=== PATIENT | male | born 1970 | race African-American/Black ===

== ENCOUNTER 2016-10-03 14:28 | Emergency (ER) | payer MEDICAID ==
[~2016-10-03] VITALS: Ht 175.3 cm; Wt 128.8 kg
[~2016-10-03 14:28] MED LIST: AMOX500T3 PO; IBUP800T24 PO; NORPTMEDS CO
[2016-10-03] MEDS ORDERED: ONDANSETRON HCL 4 MG/2 ML VIAL IM ONE (16:15)
[2016-10-03] MEDS ORDERED: HYDROmorphone HCL 2 MG/ML VL IM ONE (16:15)
[2016-10-03 16:31] VITALS: BP 127/67
[2016-10-03] MEDS ORDERED: ETHYL CHLORIDE SPRAY TOP ONE (16:45)
== END 2016-10-03 18:15 | disposition home or self-care (01) ==
LOC: ER 14:31
DX: N49.2 Inflammatory disorders of scrotum (principal)
CPT/HCPCS: 10060; 96372; 99284; J1170; J2405

== ENCOUNTER 2017-02-05 00:02 | Emergency (ER) | payer MEDICAID ==
[2017-02-05] MEDS ORDERED: HYDROcodone-ACET 10/325MG TAB ONE (01:19)
== END 2017-02-05 05:00 | disposition left against medical advice (07) ==
LOC: ER 00:02
DX: K08.89 Other specified disorders of teeth and supporting structures (principal); Z53.21 Procedure and treatment not carried out due to patient leaving prior to being seen by health care provider

== ENCOUNTER 2017-07-26 19:21 | Emergency (ER) | payer MEDICAID ==
[~2017-07-26] VITALS: Ht 182.9 cm; Wt 127.0 kg
[2017-07-26 19:36] VITALS: BP 162/120
== END 2017-07-27 00:23 | disposition left against medical advice (07) ==
LOC: EDBD 19:21 → ER 19:21
DX: F10.10 Alcohol abuse, uncomplicated (principal); Z53.21 Procedure and treatment not carried out due to patient leaving prior to being seen by health care provider

== ENCOUNTER 2017-08-07 23:50 | Emergency (ER) | payer MEDICAID ==
[~2017-08-07] VITALS: Ht 185.4 cm; Wt 117.9 kg
[2017-08-08 00:16] VITALS: BP 126/89
[2017-08-08] MEDS ORDERED: KETOROLAC TROMETH 60MG/2ML VIAL IM ONE (01:45)
[2017-08-08] MEDS ORDERED: CYCLOBENZAPRINE HCL 10 MG TAB PO ONE (01:45)
[2017-08-08] MEDS ORDERED: HYDROcodone-ACET 10/325MG TAB PO ONE (02:00)
== END 2017-08-08 02:53 | disposition home or self-care (01) ==
LOC: ER 23:50
DX: M48.02 Spinal stenosis, cervical region (principal); V49.3XXA Car occupant (driver) (passenger) injured in unspecified nontraffic accident, initial encounter; Y93.89 Activity, other specified; Y92.89 Other specified places as the place of occurrence of the external cause; Y99.8 Other external cause status
CPT/HCPCS: 71010; 72100; 72125; 73020; J1885

== ENCOUNTER 2017-08-17 22:28 | Emergency (ER) | payer MEDICAID ==
[~2017-08-17] VITALS: Ht 185.4 cm; Wt 121.1 kg
[2017-08-17 23:00] VITALS: BP 129/89
[2017-08-17] MEDS ORDERED: HYDROcodone-ACET 10/325MG TAB ONE (23:45)
[2017-08-18] MEDS ORDERED: HYDROcodone-ACET 10/325MG TAB PO ONE
[2017-08-18] MEDS ORDERED: methylPREDNISolone SOD SUCC 125 MG/2 ML VL IM ONE (01:45)
[2017-08-18] MEDS ORDERED: KETOROLAC TROMETH 60MG/2ML VIAL IM ONE (01:45)
== END 2017-08-18 02:44 | disposition home or self-care (01) ==
LOC: ER 22:32
DX: S39.012A Strain of muscle, fascia and tendon of lower back, initial encounter (principal); S29.012A Strain of muscle and tendon of back wall of thorax, initial encounter; S50.01XA Contusion of right elbow, initial encounter; S70.02XA Contusion of left hip, initial encounter; Z79.2 Long term (current) use of antibiotics; Z79.1 Long term (current) use of non-steroidal anti-inflammatories (NSAID); W01.0XXA Fall on same level from slipping, tripping and stumbling without subsequent striking against object, initial encounter; Y93.89 Activity, other specified; Y99.8 Other external cause status; Y92.89 Other specified places as the place of occurrence of the external cause
CPT/HCPCS: 72128; 72131; 73070; 73502; 96372; 99284; J1885; J2930

== ENCOUNTER 2017-08-28 19:46 | Observation (INO) | payer MEDICAID ==
[~2017-08-28] VITALS: Ht 182.9 cm; Wt 136.1 kg
[2017-08-28 22:18] LABS: Urine Bacteria NONE SEEN /hpf (None Seen); Urine Blood Negative /uL (Negative); Urine Mucus FEW (None Seen); Urine Specific Gravity 1.026 (1.001-1.035); Urine WBC 3 /hpf (0 - 3)
[2017-08-28 22:23] LABS: Alcohol, Urine < 3.0 mg/dL (0-5); Amphetamine Screen, Urine NEGATIVE (NEGATIVE); Barbiturate Scree,Urine NEGATIVE (NEGATIVE); Benzodiazephine Screen, Urine POSITIVE (NEGATIVE); Cannabinoid Screen, Urine POSITIVE (NEGATIVE); Cocaine Screen, Urine NEGATIVE (NEGATIVE)
[2017-08-28 22:32] LABS: Opiate Scree,Urine NEGATIVE (NEGATIVE); Phencyclidine Screen, Urine POSITIVE (NEGATIVE)
[2017-08-28 23:02] LABS: Basophils # (auto) 0.1 uL; Basophils % (auto) 0.7 % (0.0-2.0); Eosinophils # (auto) 0 uL; Eosinophils % (auto) 0.3 % (0.0-7.0); Hematocrit 46.4 % (41.0-53.0); Hemoglobin 15.4 g/dL (13.5-17.5); Lymphocytes # (auto) 2.3 uL; Lymphocytes % (auto) 23.2 % (10.0-50.0); Mean Corpuscular Hemoglobin 30.3 pg (28.0-32.0); Mean Corpuscular Hgb Conc. 33.1 g/dL (32.0-36.0); Mean Corpuscular Volume 91.4 fL (80.0-100.0); Monocytes # (auto) 0.5 uL; Neutrophils # (auto) 7.1 uL; Neutrophils % (auto) 70.8 % (37.0-80.0); Nucleated Red Blood Cells % 0.1 %; Platelet Count (auto) 284 10^3/uL (140-450); Red Blood Cells 5.07 10^6/uL (4.5-5.90); Red Cell Distribution Width 14.3 % (11.8-14.3)
[2017-08-28 23:15] LABS: Alanine Aminotransferase 69 U/L (16-61); Albumin 3.5 g/dL (3.4-5.0); Anion Gap 8 (5-15); Aspartate Aminotransferase 34 U/L (15-37); BUN/Creatinine Ratio 9.4; Blood Alcohol < 3.0 mg/dL (0-5); Blood Urea Nitrogen 12 mg/dL (7-18); Carbon Dioxide 23 mmol/L (21-32); Chloride 110 mmol/L (98-107); GFR African American 78 mL/min; GFR Non-African American 64 mL/min; Glucose 159 mg/dL (74-106); Sodium 141 mmol/L (136-145)
[2017-08-28 23:18] LABS: Alkaline Phosphatase 69 U/L (45-117); Bilirubin, Total 0.4 mg/dL (0.2-1.0); Total Protein 7.5 g/dL (6.4-8.2)
[2017-08-29] MEDS ORDERED: SODIUM CHLORIDE 0.9% 1,000 ML IV ONE
[2017-08-29 00:46] LABS: INR 1.05 (0.9-1.15)
[2017-08-29] MEDS ORDERED: HYDROcodone-ACET 10/325MG TAB PO ONE (01:15)
[2017-08-29 01:55] VITALS: BP 136/75
== END 2017-08-29 01:35 | disposition home or self-care (01) | DRG 861 ==
LOC: ER 19:46 → EDBD 19:46 → OVERFLOW 23:50 → ER 08-29 01:35
PROVIDERS: ADMIT Emergency Medicine; ATTEND Emergency Medicine
DX: R41.82 Altered mental status, unspecified (principal); G92 Toxic encephalopathy; F12.10 Cannabis abuse, uncomplicated
CPT/HCPCS: 36415; 70450; 71045; 80053; 80307; 80320; 81001; 83735; 83880; 84484; 85025; 85379; 85610; 85730; 93005; 96360; 96361; 99285; G0378

== ENCOUNTER 2017-10-06 05:29 | Emergency (ER) | payer MEDICAID ==
[~2017-10-06] VITALS: Ht 188 cm; Wt 122.5 kg
[2017-10-06 07:00] VITALS: BP 150/89
== END 2017-10-06 07:12 | disposition home or self-care (01) ==
LOC: ER 05:34
DX: I10 Essential (primary) hypertension (principal); F17.210 Nicotine dependence, cigarettes, uncomplicated

== ENCOUNTER 2017-10-08 01:37 | Emergency (ER) | payer MEDICAID ==
[~2017-10-08] VITALS: Ht 182.9 cm; Wt 122.5 kg
[2017-10-08] MEDS ORDERED: cloNIDine HCL 0.1 MG TAB PO ONE (02:30)
[2017-10-08 03:21] VITALS: BP 168/110
== END 2017-10-08 03:35 | disposition left against medical advice (07) ==
LOC: ER 01:37
DX: R53.1 Weakness (principal); Z53.21 Procedure and treatment not carried out due to patient leaving prior to being seen by health care provider

== ENCOUNTER 2017-12-08 18:10 | Emergency (ER) | payer MEDICAID ==
[~2017-12-08] VITALS: Ht 182.9 cm; Wt 120.2 kg
[2017-12-08 18:37] VITALS: BP 129/88
== END 2017-12-09 00:45 | disposition home or self-care (01) ==
LOC: ER 18:10
DX: M54.5 Low back pain (principal); M25.571 Pain in right ankle and joints of right foot; I10 Essential (primary) hypertension; M19.90 Unspecified osteoarthritis, unspecified site; F17.210 Nicotine dependence, cigarettes, uncomplicated; W50.2XXA Accidental twist by another person, initial encounter; Y93.89 Activity, other specified; Y92.89 Other specified places as the place of occurrence of the external cause; Y99.8 Other external cause status
CPT/HCPCS: 72100; 73610

== ENCOUNTER → 2017-12-08 | Emergency (ER) | payer MEDICAID | END | disposition left against medical advice (07) | LOC: ER 13:13 | DX: Z04.3 Encounter for examination and observation following other accident (principal); Z53.21 Procedure and treatment not carried out due to patient leaving prior to being seen by health care provider ==

== ENCOUNTER 2018-05-18 15:59 | Emergency (ER) | payer MEDICAID ==
[~2018-05-18] VITALS: Ht 185.4 cm; Wt 122.5 kg
[2018-05-18 16:10] VITALS: BP 147/104
[2018-05-18 20:06] LABS: Amphetamine Screen, Urine NEGATIVE (NEGATIVE); Barbiturate Scree,Urine NEGATIVE (NEGATIVE); Benzodiazephine Screen, Urine NEGATIVE (NEGATIVE); Cannabinoid Screen, Urine POSITIVE (NEGATIVE); Cocaine Screen, Urine NEGATIVE (NEGATIVE); Opiate Scree,Urine NEGATIVE (NEGATIVE); Phencyclidine Screen, Urine POSITIVE (NEGATIVE)
== END 2018-05-18 17:57 | disposition left against medical advice (07) ==
LOC: ER 15:59
DX: F10.10 Alcohol abuse, uncomplicated (principal); F17.210 Nicotine dependence, cigarettes, uncomplicated; M19.90 Unspecified osteoarthritis, unspecified site; I10 Essential (primary) hypertension; Z53.29 Procedure and treatment not carried out because of patient's decision for other reasons; Z79.899 Other long term (current) drug therapy
CPT/HCPCS: 80307

== ENCOUNTER 2018-09-22 13:14 | Emergency (ER) | payer MEDICAID | END 2018-09-22 13:37 | disposition left against medical advice (07) | LOC: ER 13:14 → EDBD 13:14 → ER 13:37 | DX: M54.9 Dorsalgia, unspecified (principal); V89.2XXA Person injured in unspecified motor-vehicle accident, traffic, initial encounter; Y92.410 Unspecified street and highway as the place of occurrence of the external cause ==